=== PATIENT | male | born 1990 ===

== ENCOUNTER 2025-09-09 09:00 | Day surgery (SDC) | payer OTHER ==
[2025-09-03 11:21] LABS: BASO % 0.1 % (0.1-1.2); EOS # 0.28 (0.04-0.54); EOS % 2.9 % (0.7-7.0); LYMPH # 2.71 (1.18-3.74); LYMPH % 27.6 % (19.3-53.1); MEAN PLATELET VOLUME 10.10 fl (9.4-12.4); MONO # 0.72 (0.24-0.82); MONO % 7.3 % (4.7-12.5); NEUT # 6.06 (1.56-6.13); NEUT % 61.8 % (34.0-71.1); RED CELL DISTRIBUTION WIDTH 12.2 % (11.6-14.4)
[2025-09-03 11:22] LABS: URINE APPEARANCE Clear; URINE BILIRRUBIN Negative (NEGATIVE); URINE COLOR Yellow; URINE GLUCOSE Negative (NEGATIVE); URINE KETONE Negative (NEGATIVE); URINE LEUKOCYTE Negative; URINE NITRATE Negative; URINE PROTEIN Negative (NEGATIVE); URINE UROBILINOGEN 0.2 E.U./dl
[2025-09-03 11:36] LABS: URINE BLOOD TRACES
[2025-09-03 11:37] LABS: URINE BACTERIA FEW; URINE EPITHELIAL CELLS 0-4 /HPF; URINE MUCUS SCANT; URINE RBC 0-3 /HPF; URINE WBC 0-2 /hpf
[2025-09-03 11:46] LABS: INR 0.98
[2025-09-03 12:30] LABS: ALT/SGPT 103.0 U/L (12-78); AST/SGOT 49.0 U/L (15-37); BILIRUBIN TOTAL 0.61 mg/dL (0.3-1.2); BUN CREA RATIO 20.0 (7.0-25.0); CREATININE SERUM 0.9 mg/dL (0.70-1.30); GFR 95.48; GLOBULINA 3.4 G/DL (2.4-3.5); GLUCOSE FASTING 84.0 mg/dL (65-100); OSMOLALITY SERUM 282.0 MOSM/KG (275-295)
[2025-09-03 12:44] VITALS: BP 110/77
[~2025-09-09] VITALS: Ht 170.2 cm; Wt 95.3 kg
[~2025-09-09 09:00] MED LIST: CEFAZOLIN SODIUM 1,000 MG VIAL ONE
[2025-09-09] MEDS ORDERED: SUGAMMADEX SODIUM 200 MG/2 ML VIAL IV ONE ×2 (12:40→13:00)
== END 2025-09-09 15:30 | disposition home or self-care (01) ==
LOC: CIR.AMB 09:00
PROVIDERS: ATTEND Surgery
DX: K43.6 Other and unspecified ventral hernia with obstruction, without gangrene (principal)
CPT/HCPCS: 49594; C1781